=== PATIENT | female | born 1995 | race Hispanic/Latino ===

== ENCOUNTER 2017-07-31 00:01 | Emergency (ER) | payer SELFPAY ==
[~2017-07-31] VITALS: Ht 152.4 cm; Wt 131.5 kg
== END 2017-07-31 00:37 | disposition home or self-care (01) ==
LOC: ER 00:01
DX: L03.115 Cellulitis of right lower limb (principal); L03.114 Cellulitis of left upper limb; I10 Essential (primary) hypertension
CPT/HCPCS: 99282

== ENCOUNTER 2018-05-10 13:49 | Emergency (ER) | payer MEDICARE, OTHER ==
[~2018-05-10] VITALS: Ht 160 cm; Wt 117.9 kg
== END 2018-05-10 17:25 | disposition left against medical advice (07) ==
LOC: FSED 13:49
DX: O20.9 Hemorrhage in early pregnancy, unspecified (principal); R03.0 Elevated blood-pressure reading, without diagnosis of hypertension
CPT/HCPCS: 36415; 76801; 81003; 81025; 84702; 86900; 99283

== ENCOUNTER 2019-01-19 16:33 | Emergency (ER) | payer MEDICARE, OTHER ==
[~2019-01-19] VITALS: Ht 162.6 cm; Wt 130.2 kg
--- OUTSIDE RECORDS SUMMARY | 2019-01-19 16:36 | XMS REPORT | Summary of Care ---
Author Author [facility] - Health Organization [facility] - [facility] Address Unknown Phone Unavailable Care Team Providers Care Information Security Officer Name Role Phone Pcp, Patient Does Not Have A Unavailable Katelyn Whitman CNM PCP Reason for Visit * Reason Comments ABNORMAL PAP LGSIL needs repepat pap in 2020 Encounter Details Care Team Description Date Type Department Katelyn Whitman, [facility] [address] [place] [address] ABNORMAL PAP (LGSIL needs repepat pap in 2020) 01/15/2019 Telephone [facility] [address] [place] [address] Allergies Comments Active Allergy Reactions Severity Noted Date Tetanus Vaccines And Rash, 10/14/2011 Toxoid Shortness of Breath documented as of this encounter (statuses as of 01/15/2019) Medications No known medicationsdocumented as of this encounter (statuses as of 01/15/2019) Active Problems Problem Noted Date Papanicolaou smear of cervix with low grade squamous intraepithelial lesion 01/15/2019 (LGSIL) Overview: Needs repeat pap 12/2019 Need for HPV vaccine 01/08/2019 Well woman exam 12/10/2018 Uses spermicide for contraception 12/10/2018 Overview: Wants IUD BMI 45.0-49.9, adult 12/10/2018 headache 12/06/2018 Pre-eclampsia, delivered 12/05/2018 Allergy to vaccine 08/28/2018 Overview: tetanus documented as of this encounter (statuses as of 01/15/2019) Resolved Problems Problem Noted Date Resolved Date Elevated blood pressure reading without diagnosis of hypertension 12/06/2018 12/10/2018 (normal spontaneous vaginal delivery) 11/20/2018 12/10/2018 Single live 11/20/2018 12/10/2018 First degree laceration of perineum during delivery, 11/20/2018 12/10/2018 GBS (group B Streptococcus carrier), +RV culture, currently 11/18/2018 12/10/2018 39 weeks gestation of 11/18/2018 12/10/2018 Morbid obesity with body mass index of 50 or higher 11/18/2018 12/10/2018 Beta hemolytic Streptococcus culture positive 11/06/2018 12/10/2018 Decreased movements in third trimester 10/16/2018 11/13/2018 Vaginal yeast infection 09/20/2018 09/30/2018 Pelvic pain affecting in third trimester, antepartum 09/20/2018 09/30/2018 Back pain affecting in third trimester 09/20/2018 12/10/2018 Anemia of mother in , antepartum 08/10/2018 12/10/2018 Excessive weight gain affecting 07/10/2018 12/10/2018 Rubella immune 05/21/2018 08/28/2018 High-risk in third trimester 05/15/2018 12/10/2018 Obesity affecting , antepartum 05/15/2018 08/28/2018 Primigravida, antepartum 05/15/2018 08/28/2018 BMI 40.0-44.9, adult 05/15/2018 08/28/2018 PCOS (polycystic ovarian syndrome) 01/27/2014 12/10/2018 Accessory nipple in female 01/27/2014 11/06/2018 Dorsal wrist ganglion 01/06/2014 05/15/2018 Ganglion cyst of wrist, left 01/06/2014 05/15/2018 Obesity affecting in third trimester 01/06/2014 12/10/2018 documented as of this encounter (statuses as of 01/15/2019) Immunizations Name Administration Dates Next Due HPV9 01/08/2019, 11/19/2018 Influenza Virus Vaccine 03/26/2018 documented as of this encounter Social History Date Tobacco Use Types Packs/Day Years Used Never Smoker Smokeless Tobacco: Never Used Drinks/Week oz/Week Comments Alcohol Use No Sex Assigned at Date Recorded Not on file Industry Job Start Date Occupation Not on file Not on file Not on file Travel End Travel History Travel Start No recent travel history available. documented as of this encounter Last Filed Vital Signs Not on filedocumented in this encounter Plan of Treatment Care Team Description Date Type Specialty 1, Yamilet Castillo Rn 06/10/2019 Nurse Visit [facility], Yamilet [facility] Room 01/17/2020 Office Visit [facility] Katelyn Whitman, CNM [address] [place], [place] [id number] 01/17/2020 Office Visit [facility] Health Maintenance Due Date Last Done Comments MENINGOCOCCAL B VACCINES 09/13/2007 (1 of 2 - Risk Bexsero 2-dose series) DTaP,Tdap,and Td Vaccines 2016 (1 - Tdap) INFLUENZA VACCINE (#1) 2019 03/26/2018, 03/18/2014, 04/15/2012, Additional history exists HPV VACCINES (3 - Female 05/21/2019 01/08/2019, 11/19/2018 3-dose series) CHLAMYDIA SCREENING 01/09/2020 01/08/2019, 11/04/2018, 09/20/2018, Additional history exists PAP SMEAR 01/08/2022 01/08/2019 MENINGOCOCCAL VACCINE Aged Out No longer eligible based on patient's age to complete this topic PNEUMOCOCCAL 0-64 YEARS Aged Out No longer eligible based COMBINED SERIES on patient's age to complete this topic documented as of this encounter Results Not on filedocumented in this encounter Insurance Type Payer Benefit Subscriber ID Effective Phone Address Plan / Dates Group Medicaid [facility] xxxxxxxxx 2018-P [address] [place] [id number] MED[place], [place] documented as of this encounter
--- OUTSIDE RECORDS SUMMARY | 2019-01-19 16:36 | XMS REPORT | Summary of Care ---
Author Author [facility] - Health Organization [facility] - [facility] Address Unknown Phone Unavailable Care Team Providers Care Digital Content Manager Name Role Phone Pcp, Patient Does Not Have A Unavailable Katelyn Whitman PCP Reason for Visit * Reason Comments Well Woman Exam Encounter Details Care Team Description Date Type Department Katelyn Whitman CN [address] [place] [address] Well woman exam (Primary Dx); Need for HPV vaccine; Screen for STD (sexually transmitted disease); Uses spermicide for contraception; BMI 45.0-49.9, adult 01/08/2019 [facility] [address] [place] [address] Allergies Comments Active Allergy Reactions Severity Noted Date Tetanus Vaccines And Rash, 10/14/2011 Toxoid Shortness of Breath documented as of this encounter (statuses as of 01/08/2019) Medications End Date Status Medication Sig Dispensed Refills Start Date 01/08/2019 Discontinued ketorolac 10 mg Take 1 tablet 20 tablet 0 tabletIndications: by mouth 9 Nonintractable headache, every 6 (six) unspecified chronicity hours as pattern, unspecified needed for headache type Pain (scale 1-3). 01/08/2019 Discontinued butalbital-acetaminophen- Take 1 tablet 20 tablet 0 caff 50-325-40 mg by mouth 9 tabletIndications: every 4 Nonintractable headache, (four) hours unspecified chronicity as needed for pattern, unspecified Pain (scale headache type 1-3). documented as of this encounter (statuses as of 01/08/2019) Active Problems Problem Noted Date Need for HPV vaccine 01/08/2019 Well woman exam 12/10/2018 Uses spermicide for contraception 12/10/2018 Overview: Wants IUD BMI 45.0-49.9, adult 12/10/2018 headache 12/06/2018 Pre-eclampsia, delivered 12/05/2018 Allergy to vaccine 08/28/2018 Overview: tetanus documented as of this encounter (statuses as of 01/08/2019) Resolved Problems Problem Noted Date Resolved Date [...] as of this encounter (statuses as of 01/08/2019) Immunizations Name Administration Dates Next Due HPV9 [...] of this encounter Last Filed Vital Signs Reading Time Taken Comments Vital Sign 126/85 01/08/2019 11:18 AM CDT Blood Pressure 74 01/08/2019 11:18 AM CDT Pulse 36.2 C (97.2 F) 01/08/2019 11:18 AM CDT Temperature 18 01/08/2019 11:18 AM CDT Respiratory Rate - - Oxygen Saturation - - Inhaled Oxygen Concentration 130.2 kg (287 lb) 01/08/2019 11:18 AM CDT Weight 162.6 cm (5' 4") 01/08/2019 11:18 AM CDT Height 49.26 01/08/2019 11:18 AM CDT Body Mass Index documented in this encounter Patient Instructions * Patient Instructions* Katelyn Whitman CNM - 01/08/2019 10:00 AM CDT Improving Your Fertility Your healthcare provider may suggest some simple methods to help you get pregnan t. Most focus on predicting ovulation. This is the time when sex has the best ch ance of success. Your healthcare provider may also advise working on other facto rs that can affect fertility. Predicting ovulation Conception is only possible when a woman is ovulating. One signal of ovulation i s a surge in the hormone LH. Other signals include changes in body temperature a nd changes in cervical mucus. Ovulation predictor kits One of the best signals of ovulation is a sudden increase in the hormone LH. A s imple urine test called an ovulation predictor kit is available at most [facility] hospital. It can help pinpoint this surge. Have sex the day you notice the surge. Keep having sex daily over the next 3 days, or as often as your healthcare provider suggests. Body temperature changes A womans resting temperature or basal body temperatureincreases after ovula tion. By this point in the cycle, having sex will not increase your chances of getting . But it means ovulation has occurred. Cervical mucus changes Shortly before ovulation a womans cervical mucus gets clear and stretchy. The mucus also increases in quantity. This makes it easier for sperm to travel thro ugh the cervix. Not all women notice these changes. But if you do, begin having sex daily until the mucus thickens again. Working on other factors that affect fertility Certain lifestyle and health habits can affect fertility. Be sure to talk with y our healthcare provider about these issues. You may be able to make some simple changes to improve your chances of conception. Keep in mind, though, that it can take time for healthy changes to improve your fertility. Weight problems Being overweight or underweight can affect hormone levels. In women, this can af fect ovulation. In men, obesity can decrease sperm count. Medicines, supplements, and herbal remedies Medicines, supplements, and herbal remedies can affect hormone levels in men and women. They can also affect the quantity and quality of sperm. Be sure to tell your healthcare provider about any substances you take. Sexually transmitted diseases Sexually transmitted diseases (STDs) can scar the reproductive organs in both me n and women. If youve had an STD, be sure totell your healthcare provider. Testicular heat A hussein testicles are normally a few degrees cooler than the rest of his body. When the testicles are too warm, sperm production may decline. Try to not use h ot tubs and saunas. Smoking, alcohol, and drugs Smoking can affect estrogen levels and decrease egg production in women. Men who smoke may have lowered sperm count. Drinking too much or using drugs can also d ecrease fertility in both men and women. Chemical exposure Certain chemicals can affect hormone levels. Talk with your healthcare provider if youre regularly exposed to strong chemicals. You should also ask about lub ricants used during sex. Some types can be toxic to sperm. Other factors Getting too much exercise can decrease hormone production. It can also cause irr egular menstruation in women. Ongoing stress may alsoaffect fertility and caus e ovulation problems. Date Last Reviewed: 09/23/201719995919-2650 [employer]. [address] [place] [address], [place], [place] [address]. All rights reserved. This information is not intended as a substitute for pro fessional medical care. Always follow your healthcare professional's instruction s. Control: Spermicides Spermicides help prevent by killing sperm before they can enter the ut erus. They come in many forms, including foam, jelly, film, and suppository-like inserts. These can be bought in drugstores without a prescription. rates Talk to your healthcare provider about the effectiveness of this control m ethod. Using spermicides For best protection against , use spermicides with a barrier method (condom, diaphragm, or cervical cap). Apply before there is any contact between the penis and vagina. Check the package for instructions on how to apply. Reapply each time you have sex. Don't douche or use tampons for 6 to 8 hours after using a spermicide. Pros Easy to get No prescription needed Either partner can apply them, so responsibility can be shared Come in many forms Easy to stop if you decide you want to become Cons High rate when used alone Provides little protection against sexually transmitted diseases (STDs) Can interrupt sex May cause minor irritation of the skin or vagina May taste bad Spermicides may not be for you Spermicides may not be for you if: You are not also using a barrier method You are allergic to spermicides You're not willing to interrupt lovemaking to apply them Date Last Reviewed: 07/24/201619997838-4875 [employer]. [address] [place] [address] 7. All rights reserved. This information is not intended as a substitute for pro fessional medical care. Always follow your healthcare professional's instruction s. documented in this encounter Progress Notes * Katelyn Whitman CNM - 01/08/2019 10:00 AM CDT Chief complaint: Chief Complaint Patient presents with Well Woman Exam LAW REPORTER H&P NOTE Date of Service: 01/08/2019 Chief Complaint: Ruthie Fulton, 23 year old, female presents for well wo man exam and contraception Last menstrual period: Patient's last menstrual period was 01/04/2019. Menses: Regular Last Pap Smear: never Current Contraceptive Method: Wants vaginal spermicides STD's: none Sexual History: Social History Substance and Sexual Activity Sexual activity: Yes Partners: Male control/protection: None Comment: last relations 1 wk ago Current Medications: No current outpatient medications on file. No current facility-administered medications for this visit. Allergies: Tetanus vaccines and toxoid History: Past Medical History: No date: ADHD (attention deficit hyperactivity disorder) Comment: DX 2013 TEMPORILY USED MEDICATION 08/10/2018: Anemia of mother in , antepartum No date: Anxiety Comment: DX AGE 18 ,TEMPORARILY TOOK MEDICATION,STOPPED DUE TO LACK OF INSURANCE No date: Hidradenitis Comment: ERROR ??? No date: PCOS (polycystic ovarian syndrome) Comment: DX 201312/05/2018: Preeclampsia 09/20/2018: Vaginal yeast infection Review of patient's family history indicates: Problem: Cancer Relation: Maternal Grandfather Age of Onset: (Not Specified) Comment: Skin cancer Problem: Diabetes Relation: Maternal Grandfather Age of Onset: (Not Specified) Problem: High cholesterol Relation: Maternal Grandfather Age of Onset: (Not Specified) Problem: High cholesterol Relation: Mother Age of Onset: (Not Specified) Problem: Hypertension Relation: Mother Age of Onset: (Not Specified) Problem: High cholesterol Relation: Father Age of Onset: (Not Specified) Problem: Hypertension Relation: Father Age of Onset: (Not Specified) Problem: Diabetes Relation: Maternal Grandmother Age of Onset: (Not Specified) Problem: High cholesterol Relation: Maternal Grandmother Age of Onset: (Not Specified) Family Status Relation: MGFa Name: (Not Specified) Status: Relation: Mo Name: (Not Specified) Status: Alive Relation: Fa Name: (Not Specified) Status: Alive Relation: MGMo Name: (Not Specified) Status: Relation: PGMo Name: (Not Specified) Status: Alive Relation: PGFa Name: (Not Specified) Status: Alive Past Surgical History: 01/12/2014: GANGLION EXCISION; Left Comment: Surgeon: Lonny Singer MD; Location: [facility] No date: HAND DEBRIDEMENT Comment: LEFT CYST REMOVED Social History Socioeconomic History Marital status: Single Spouse name: Not on file Number of children: Not on file Years of education: Not on file Highest education level: Not on file Occupational History Not on file Social Needs Financial resource strain: Not on file Food insecurity: Worry: Not on file Inability: Not on file Transportation needs: Medical: Not on file Non-medical: Not on file Tobacco Use Smoking status: Never Smoker Smokeless tobacco: Never Used Substance and Sexual Activity Alcohol use: No Drug use: No Sexual activity: Yes Partners: Male control/protection: None Comment: last relations 1 wk ago Lifestyle Physical activity: Days per week: Not on file Minutes per session: Not on file Stress: Not on file Relationships Social connections: Talks on phone: Not on file Gets together: Not on file Attends mu-ism service: Not on file Active member of club or organization: Not on file Attends meetings of clubs or organizations: Not on file Relationship status: Not on file Intimate partner violence: Fear of current or ex partner: Not on file Emotionally abused: Not on file Physically abused: Not on file Forced sexual activity: Not on file Other Topics Concerns: Not on file Social History Narrative Not on file Social History Substance and Sexual Activity Sexual activity: Yes Partners: Male control/protection: None Comment: last relations 1 wk ago Surgical History: Past Surgical History: 01/12/2014: GANGLION EXCISION; Left Comment: Surgeon: Lonny Singer MD; Location: [facility] No date: HAND DEBRIDEMENT Comment: LEFT CYST REMOVED OB History: OB History T1 L1 SAB0 TAB0 Ectopic0 Multiple0 Live Births1 Name of Baby 1: IVAN FULTON Date: 11/19/18 GA: 39w5d Delivery: Normal Spontaneous Vagin al Apgar1: 9 Apgar5: 9 Living: Living Histories OB History Para Term AB Living 1 1 1 1 SAB TAB Ectopic Multiple Live Births 1 # Outcome Date GA Lbr [place]/2nd Weight Sex Delivery Anes PTL Lv 1 Term 11/19/18 39w5d 7 lb 1.9 oz (3.23 kg) F NORMAL SPONT EPI N SHAHEEN Past Medical History: Diagnosis Date ADHD (attention deficit hyperactivity disorder) DX 2013 TEMPORILY USED MEDICATION Anemia of mother in , antepartum 08/10/2018 Anxiety DX AGE 18 ,TEMPORARILY TOOK MEDICATION,STOPPED DUE TO LACK OF INSURANCE Hidradenitis ERROR ??? PCOS (polycystic ovarian syndrome) DX 2013 Preeclampsia 12/05/2018 Vaginal yeast infection 09/20/2018 Family History Problem Relation Age of Onset Cancer Maternal Grandfather Skin cancer Diabetes Maternal Grandfather High cholesterol Maternal Grandfather High cholesterol Mother Hypertension Mother High cholesterol Father Hypertension Father Diabetes Maternal Grandmother High cholesterol Maternal Grandmother Family Status Relation Name Status MGFa Mo Alive Fa Alive MGMo PGMo Alive PGFa Alive Past Surgical History: Procedure Laterality Date GANGLION EXCISION Left 01/12/2014 Surgeon: Lonny Singer MD; Location: [facility] HAND DEBRIDEMENT LEFT CYST REMOVED Social History Socioeconomic History Marital status: Single Spouse name: Not on file Number of children: Not on file Years of education: Not on file Highest education level: Not on file Occupational History Not on file Social Needs Financial resource strain: Not on file Food insecurity: Worry: Not on file Inability: Not on file Transportation needs: Medical: Not on file Non-medical: Not on file Tobacco Use Smoking status: Never Smoker Smokeless tobacco: Never Used Substance and Sexual Activity Alcohol use: No Drug use: No Sexual activity: Yes Partners: Male control/protection: None Comment: last relations 1 wk ago Lifestyle Physical activity: Days per week: Not on file Minutes per session: Not on file Stress: Not on file Relationships Social connections: Talks on phone: Not on file Gets together: Not on file Attends mu-ism service: Not on file Active member of club or organization: Not on file Attends meetings of clubs or organizations: Not on file Relationship status: Not on file Intimate partner violence: Fear of current or ex partner: Not on file Emotionally abused: Not on file Physically abused: Not on file Forced sexual activity: Not on file Other Topics Concern Not on file Social History Narrative Not on file Social History Substance and Sexual Activity Sexual Activity Yes Partners: Male control/protection: None Comment: last relations 1 wk ago Labs Labs are pending. and No visits with results within 1 Month(s) from this visit. Latest known visit with results is: Admission on 12/07/2018, Discharged on 12/08/2018 Component Date Value NA 12/07/2018 140 K 12/07/2018 4.5 CL 12/07/2018 105 CO2 TOTAL 12/07/2018 24 AGAP 12/07/2018 11 BUN 12/07/2018 16 GLUCOSE 12/07/2018 97 CREATININE 12/07/2018 0.99 TOTAL BILI 12/07/2018 0.3 CALCIUM 12/07/2018 9.0 T PROTEIN 12/07/2018 7.3 ALBUMIN 12/07/2018 4.0 ALK PHOS 12/07/2018 100 ALT(SGPT) 12/07/2018 26 AST(SGOT) 12/07/2018 31 eGFR Calculation (Non-Af* 12/07/2018 70.8 eGFR Calculation (Mary* 12/07/2018 85.8 PREG SERUM 12/07/2018 Negative WBC 12/07/2018 7.17 RBC 12/07/2018 4.34 HGB 12/07/2018 11.7 HCT 12/07/2018 36.8 MCV 12/07/2018 84.8 MCH 12/07/2018 27.0 MCHC 12/07/2018 31.8 RDW-SD 12/07/2018 41.0 RDW-CV 12/07/2018 13.2 PLT 12/07/2018 259 MPV 12/07/2018 11.5 NRBC/100 WBC 12/07/2018 0.0 NRBC x10^3 12/07/2018 <0.01 GRAN MAT (NEUT) % 12/07/2018 60.0 IMM GRAN % 12/07/2018 0.40 LYMPH % 12/07/2018 25.8 MONO % 12/07/2018 7.8 EOS % 12/07/2018 5.4 BASO % 12/07/2018 0.6 GRAN MAT x10^3(ANC) 12/07/2018 4.30 IMM GRAN x10^3 12/07/2018 0.03 LYMPH x10^3 12/07/2018 1.85 MONO x10^3 12/07/2018 0.56 EOS x10^3 12/07/2018 0.39 BASO x10^3 12/07/2018 0.04 Radiology No new radiology. Allergies Ruthie is allergic to tetanus vaccines and toxoid. Medications Ruthie currently has no medications in their medication list. Review of Systems Breasts: Negative. Gastrointestinal: Negative. Genitourinary: Negative. Musculoskeletal: Negative. Neurological: Negative. Psychiatric/Behavioral: Negative. All other systems reviewed and are negative. Endocrine: Endocrine negative BP 126/85 | Pulse 74 | Temp 36.2 C (97.2 F) (Tympanic) | Resp 18 | Ht 5' 4" (1.626 m) | Wt 287 lb (130.2 kg) | LMP 01/04/2019 | ? Yes | BMI 49.26 kg/m Pregravid BMI: Could not be calculated Physical Exam Vitals reviewed. Constitutional: She appears well-developed. Her body habitus is obese. Neck: No tenderness and no mass. Cardiovascular: Regular rate and rhythm. Pulmonary/Chest: Normal inspiratory effort. Abdominal: Abdomen is soft. Neuro/Psychiatric: She has a normal mood and affect. Skin: Skin normal. Breast: Normal left breast and normal right breast External genitalia: Normal external genitalia appropriate for age. Vagina:Normal vagina. Cervix: Normal cervix. Uterus: Normal uterus Adnexa: Normal left adnexa and normal right adnexa Assessment/Plan Well woman exam (primary encounter diagnosis) Comment: Plan: PAP Smear-Liquid Based, GC & CHLAMYDIA AMPLIFIED ASSAY, TRICHOMONAS AMPLIFIED ASSAY Need for HPV vaccine Comment: Plan: GARDASIL 9 (HPV 9V) VACCINE, GARDASIL 9 (HPV 9V) VACCINE Series started in hospital Screen for STD (sexually transmitted disease) Comment: Plan: HIV 1/2 AG-AB WITH REFLEX, [facility]AL[facility] ONLY - SYPHILIS IGG/IGM Uses spermicide for contraception Comment: Plan: discussed increase effectiveness w/ condom use and fertility awareness BMI 45.0-49.9, adult Comment: Plan: Return to clinic in 4 mon HPV #3. This visit did not involve counseling and coordination that comprised more than 50% of the visit time. * Sherrell Tang LVN - 01/08/2019 10:00 AM CDT [facility] sponsored patient here for HPV vaccine. This is patients 2nd dose. She de nies any complications with 1st administration. Her current method of co ntrol is Abstinence . Patient will return for dose number 3 In 6 mo from 1st dose. Verbalized understanding & agreed with plan of care. documented in this encounter Plan of Treatment Care Team Description Date Type Specialty 1, Yamilet Castillo Rn 06/10/2019 Nurse Visit OB Satellites Date/Time Name Type Priority Associated Diagnoses 01/08/2019 12:40 PM CDT PAP Smear-Liquid Based LAB Routine Well woman exam 01/08/2019 12:40 PM CDT GC & CHLAMYDIA AMPLIFIED LAB Routine Well woman exam ASSAY 01/08/2019 12:40 PM CDT TRICHOMONAS AMPLIFIED LAB Routine Well woman exam ASSAY 01/08/2019 12:46 PM CDT HIV 1/2 AG-AB WITH REFLEX LAB Routine Screen for STD (sexually transmitted disease) 01/08/2019 12:46 PM CDT [facility] ONLY - SYPHILIS LAB Routine Screen for STD (sexually IGG/IGM transmitted disease) Order Schedule Name Type Priority Associated Diagnoses 2 Occurrences starting 01/08/2019 until 07/11/2020, 1 completed GARDASIL 9 (HPV 9V) IMMUNIZATION/IN Routine Need for HPV vaccine VACCINE JECTION Health Maintenance Due Date Last Done Comments MENINGOCOCCAL B VACCINES 09/13/2007 (1 of 2 - Risk Bexsero 2-dose series) DTaP,Tdap,and Td Vaccines 2016 (1 - Tdap) PAP SMEAR 2018 HPV VACCINES (2 - Female 12/17/2018 11/19/2018 3-dose series) INFLUENZA VACCINE (#1) 2019 03/26/2018, 03/18/2014, 04/15/2012, Additional history exists CHLAMYDIA SCREENING 11/05/2019 11/04/2018, 09/20/2018, 05/15/2018 MENINGOCOCCAL VACCINE Aged Out No longer eligible based on patient's age to complete this topic PNEUMOCOCCAL 0-64 YEARS Aged Out No longer eligible based COMBINED SERIES on patient's age to complete this topic documented as of this encounter Procedures Comments Procedure Name Priority Date/Time Associated Diagnosis GARDASIL 9 (HPV 9V) Routine 01/08/2019 Need for HPV vaccine VACCINE 11:52 AM CDT documented in this encounter Results Not on filedocumented in this encounter Visit Diagnoses Diagnosis Well woman exam - Primary Routine general medical examination at a health care facility Need for HPV vaccine Need for prophylactic vaccination and inoculation against other viral diseases Screen for STD (sexually transmitted disease) Screening examination for venereal disease Uses spermicide for contraception BMI 45.0-49.9, adult Body Mass Index 45.0-49.9, adult documented in this encounter Insurance Type Payer Benefit Subscriber ID Effective Phone Address Plan / Dates Group Medicaid THOMAS [employer] - THOMAS xxxxxxxxx 2018-P [address]OX MANAGED MEDICAID [place]CARE [place] [id number] MEDICAID [place], [place] documented as of this encounter
--- OUTSIDE RECORDS SUMMARY | 2019-01-19 16:36 | XMS REPORT | Summary of Care ---
Author Author [facility] - Health Organization [facility] - [facility] Address Unknown Phone Unavailable Care Team Providers Care Grocery Carrier Name Role Phone Pcp, Patient Does Not Have A Unavailable Katelyn Whitman PCP Reason for Visit * Reason Comments Well Woman Exam Encounter Details Care Team Description Date Type Department Katelyn Whitman CN [address] [place] [address] Well woman exam (Primary Dx); Need for HPV vaccine; Screen for STD (sexually transmitted disease); Uses spermicide for contraception; BMI 45.0-49.9, adult [facility] [address] [place] [address] Allergies Comments Active Allergy Reactions [...] ovulation predictor kit is available at most [facility]. It can help pinpoint this surge. Have [...] caus e ovulation problems. Date Last Reviewed: 09/23/201719992104-3148 [employer]. [address] [place] [address], [place], [place] [address]. All rights reserved. This information is [...] lovemaking to apply them Date Last Reviewed: 07/24/201619993920-6385 [employer]. [address] [place] [address] 7. All rights reserved. This information is not intended as a substitute for pro fessional medical care. Always follow your healthcare professional's instruction s. documented in this encounter Progress Notes * Katelyn Whitman CNM - 01/08/2019 10:00 AM CDT Chief complaint: Chief Complaint Patient presents with Well Woman Exam WEB SITE DEVELOPER H&P NOTE Date of Service: 01/08/2019 Chief [...] Left Comment: Surgeon: Lonny Singer MD; Location[facility] No date: HAND DEBRIDEMENT Comment: LEFT CYST [...] file Gets together: Not on file Attends rastafari service: Not on file Active member of [...] Left Comment: Surgeon: Lonny Singer MD; Location: [facility] No date: HAND DEBRIDEMENT Comment: LEFT CYST [...] Left 01/12/2014 Surgeon: Lonny Singer MD; Location: [facility] HAND DEBRIDEMENT LEFT CYST REMOVED Social History [...] file Gets together: Not on file Attends rastafari service: Not on file Active member of [...] Address Plan / Dates Group Medicaid THOMAS [employer] - THOMAS xxxxxxxxx 2018-P [address] MANAGED MED[place]ID [place] [id number] MED[place]ID [place], [place] documented as of this encounter
--- OUTSIDE RECORDS SUMMARY | 2019-01-19 16:36 | XMS REPORT ---
Author Author [facility] Address Unknown Phone Unavailable Care Team Providers Care Turfgrass Technician Name Role Phone Unavailable Unavailable Payers Payer Name Policy Type Policy Number Effective Date Expiration Date Problems This patient has no known problems. Allergies, Adverse Reactions, Alerts Allergy Name Allergy Type Status Severity Reaction(s) Onset Date Inactive Date Treating Clinician Comments Tetanus Vaccines and Toxoid DA Active CO 2018-05-17 00:00:00 No Known Contrast Allergies DA Active U 2007-04-21 00:00:00 No Known Drug Allergies DA Active U 2007-04-21 00:00:00 No Known Food Allergies DA Active U 2007-04-21 00:00:00 No Known Other Allergies DA Active U 2007-04-21 00:00:00 Medications This patient has no known medications.
[2019-01-19] MEDS ORDERED: LIDOCAINE 1% W/EPINEPHRINE 20 ML VIAL ONE (16:50)
[2019-01-19] MEDS ORDERED: NAPROSYN500 MG PO (16:59)
[2019-01-19] MEDS ORDERED: BACTRIM DS TAB1 EACH PO (16:59)
[2019-01-19 17:37] VITALS: BP 162/94
== END 2019-01-19 17:29 | disposition home or self-care (01) ==
LOC: FSED 16:33
DX: L02.412 Cutaneous abscess of left axilla (principal); L73.2 Hidradenitis suppurativa
CPT/HCPCS: 10060; 82948; 87071; 87205; 96372; 99283

== ENCOUNTER 2019-01-22 14:17 | Emergency (ER) | payer OTHER ==
[~2019-01-22] VITALS: Ht 162.6 cm; Wt 130.2 kg
[~2019-01-22 14:17] MED LIST: BACTRIM DS TAB1 EACH PO; NAPROSYN500 MG PO
[2019-01-22 15:14] VITALS: BP 126/64
== END 2019-01-22 15:03 | disposition home or self-care (01) ==
LOC: FSED 14:17
DX: L73.2 Hidradenitis suppurativa (principal); L02.91 Cutaneous abscess, unspecified
CPT/HCPCS: 99283

== ENCOUNTER 2019-08-24 11:13 | Emergency (ER) | payer SELFPAY ==
[~2019-08-24] VITALS: Ht 160 cm; Wt 122.9 kg
--- OUTSIDE RECORDS SUMMARY | 2019-08-24 11:16 | XMS REPORT | Summary of Care ---
Author Author [facility] - Health Organization [facility] - Health Address Unknown Phone Unavailable Care Team Providers Care Edge Blacker Name Role Phone Pcp, Patient Does Not Have A Unavailable Katelyn Whitman CNM PCP Encounter Details Care Team Description Date Type Department Doctor Unassigned, [place] [address] [place] [address] 06/16/2019 Orders Only [facility] [address] [place] [address] Allergies Comments Active Allergy Reactions Severity Noted Date Tetanus Vaccines And Rash, 10/14/2011 Toxoid Shortness of Breath documented as of this encounter (statuses as of 06/16/2019) Medications No known medicationsdocumented as of this encounter (statuses as of 06/16/2019) Active Problems Problem Noted Date Papanicolaou smear of cervix with low grade squamous intraepithelial lesion 01/15/2019 (LGSIL) Overview: Needs repeat pap 12/2019 Need for HPV vaccine 01/08/2019 Well woman exam 12/10/2018 Uses spermicide for contraception 12/10/2018 Overview: Wants IUD BMI 45.0-49.9, adult 12/10/2018 headache 12/06/2018 Pre-eclampsia, delivered 12/05/2018 Allergy to vaccine 08/28/2018 Overview: tetanus documented as of this encounter (statuses as of 06/16/2019) Resolved Problems Problem Noted Date Resolved Date [...] as of this encounter (statuses as of 06/16/2019) Immunizations Name Administration Dates Next Due HPV9 [...] Treatment Care Team Description Date Type Specialty 3, [facility] Room 01/17/2020 Office Visit [facility], Katelyn L, CNM [address] [place] [id number] 01/17/2020 Office Visit [facility] Health Maintenance Due Date Last Done Comments MENINGOCOCCAL B VACCINES 09/13/2007 (1 of 2 - Risk Bexsero 2-dose series) DTaP,Tdap,and Td Vaccines 2008 (1 - Tdap) INFLUENZA VACCINE (#1) 2019 [...] Comments Procedure Name Priority Date/Time Associated Diagnosis ASSIGNMENT OF BENEFITS Routine 06/16/2019 3:08 PM IMPORT CLERK documented in this encounter Results Not on filedocumented in this encounter Insurance Type Payer Benefit Subscriber ID Effective Phone Address Plan / Dates Group Medicaid [employer] [place] [employer] [id number] xxxxxxxxx 2019- [phone] [id number] [place] [address] documented as of this encounter
--- OUTSIDE RECORDS SUMMARY | 2019-08-24 11:16 | XMS REPORT | Summary of Care ---
Author Author [facility] - Health Organization [facility] - [facility] Address Unknown Phone Unavailable Care Team Providers Care Assistant Press Operator Name Role Phone Pcp, Patient Does Not Have A Unavailable Katelyn Whitman [facility] PCP Reason for Visit * Reason Comments HUMAN PAPILLOMAVIRUS Encounter Details Care Team Description Date Type Department Katelyn Whitman CN [address] [place] [address] 1, [facility] Anna Rn examination or test, negative result (Primary Dx); Need for HPV vaccine 06/16/[address] [facility] [address] [place] [address] Allergies Comments Active Allergy Reactions Severity [...] Immunizations Name Administration Dates Next Due HPV9 06/16/2019, 01/08/2019, 11/19/2018 Influenza Virus Vaccine 03/26/2018 documented [...] Signs Reading Time Taken Comments Vital Sign 115/74 06/16/2019 3:22 PM TOWEL ROLLING MACHINE OPERATOR Blood Pressure 71 06/16/2019 3:22 PM TOWEL ROLLING MACHINE OPERATOR Pulse 35.7 C (96.2 F) 06/16/2019 3:22 PM TOWEL ROLLING MACHINE OPERATOR Temperature 21 06/16/2019 3:22 PM TOWEL ROLLING MACHINE OPERATOR Respiratory Rate - - Oxygen Saturation - - Inhaled Oxygen Concentration 130.2 kg (287 lb) 06/16/2019 3:22 PM TOWEL ROLLING MACHINE OPERATOR Weight 162.6 cm (5' 4") 06/16/2019 3:22 PM TOWEL ROLLING MACHINE OPERATOR Height 49.26 06/16/2019 3:22 PM TOWEL ROLLING MACHINE OPERATOR Body Mass Index documented in this encounter Progress Notes * Brittany Christianson LVN - 06/16/2019 2:45 PM TOWEL ROLLING MACHINE OPERATOR HPV # 3 ordered by provider Antonette Verbal consents for HPV States not . UPT Negative Deneis allergy to yeast Gardasil 9 0.5 ml given right deltoid arm. Pt tolerated well. VIS and ER warnings given. Tylenol as needed for pain/discomfort from vaccine. Pt verbalized understanding and agrees with plan of care L ROLLING MACHINE OPERATOR documented in this encounter Plan of Treatment Care Team Description Date Type Specialty 3, [facility] Room 01/17/2020 Office Visit [facility] Katelyn Whitman, ZULEYMA [address] [place], [place] [address] 01/17/2020 Office Visit [facility] Health Maintenance Due Date Last Done Comments MENINGOCOCCAL B VACCINES 09/13/2007 (1 of 2 - Risk Bexsero 2-dose series) DTaP,Tdap,and Td Vaccines 2008 (1 - Tdap) INFLUENZA VACCINE (#1) 2019 03/26/2018, 03/18/2014, 04/15/2012, Additional history exists CHLAMYDIA SCREENING 01/09/2020 01/08/2019, 11/04/2018, 09/20/2018, Additional history exists PAP SMEAR 01/08/2022 01/08/2019 HPV VACCINES Completed 06/16/2019, 01/08/2019, 11/19/2018 MENINGOCOCCAL VACCINE Aged Out No longer eligible based on patient's age to complete this topic PNEUMOCOCCAL 0-64 YEARS Aged Out No longer eligible based COMBINED SERIES on patient's age to complete this topic documented as of this encounter Procedures Comments Procedure Name Priority Date/Time Associated Diagnosis GARDASIL 9 (HPV 9V) Routine 06/16/2019 Need for HPV vaccine VACCINE 3:42 PM TOWEL ROLLING MACHINE OPERATOR POCT TEST Routine 06/16/2019 examination or test, negative result documented in this encounter Results * POCT TEST (06/16/2019) POCT PREG Negative On board Yes controls acceptable with C Line POCT PREG LOT # POCT PREG TEST DATE Specimen Urine - URINE, CLEAN CATCH documented in this encounter Visit Diagnoses Diagnosis examination or test, negative result - Primary Need for HPV vaccine Need for prophylactic vaccination and inoculation against other viral diseases documented in this encounter Insurance Type Payer Benefit Subscriber ID Effective Phone Address Plan / Dates Group Medicaid [place] [facility] xxxxxxxxx 2019- [phone] [place] [address] documented as of this encounter
[2019-08-24] MEDS ORDERED: AUGMENTIN 500-1 EACH PO (11:37)
== END 2019-08-24 12:00 | disposition home or self-care (01) ==
LOC: FSED 11:13
DX: R50.9 Fever, unspecified (principal); J02.0 Streptococcal pharyngitis
CPT/HCPCS: 99282

== ENCOUNTER 2020-01-13 20:13 | Emergency (ER) | payer SELFPAY ==
[~2020-01-13] VITALS: Ht 160 cm; Wt 120.2 kg
[~2020-01-13 20:13] MED LIST changes: +AUGMENTIN 500-1 EACH PO
--- NOTE | 2020-01-13 22:03 | Emergency Department Note ---
History of Present Illnes History of Present Illness Chief Complaint: fever, vomiting and diarrhea History of Present Illness This is a 24 year old female, with history of PCOS, who presents for evaluation of fever, chills, N\V x 3 and diarrhea x 5, all symptoms began at Noon today. She states that she is currently nauseated, and last vomited in the car, on the way here. The stools are loose and watery without blood or mucous. No known sick contacts. No urinary symptoms. NO abdominal pain, other than mild epigastric discomfort. Historian: Patient Arrival Mode: Car Gas Engine Operator Compressors Required: No Onset (how long ago): hour(s) (12) Location: nauseated Radiation: Reports non-radiation Severity: moderate Onset quality: sudden Duration (how long): hour(s) (12) Timing of current episode: intermittent Progression: unchanged Chronicity: new Context: Denies recent illness, Denies recent surgery, Denies new medications Relieving factors: none Exacerbating factors: none Associated symptoms: Reports denies other symptoms, Reports fever/chills, Reports loss of appetite, Reports nausea/vomiting; Denies chest pain, Denies cough, Denies diaphoresis, Denies headaches, Denies rash, Denies shortness of breath Treatments prior to arrival: none Past Medical/Family History Physician Review I have reviewed the patient's past medical and family history. Any updates have been documented here. Past Medical History Past Medical History: None Other Medical History: PCOS Past Surgical History: None Other Surgery: CYST LEFT WRIST Social History Smoking Cessation: Never Smoker Alcohol Use: None Any Illegal Drug Use: No TB Exposure/Symptoms: No Physically hurt or threatened: No Family History Family history of heart diseas: No Other Last Tetanus: unk Any Pre-Existing Lines (PICC,: No Is patient up to date on immun: No Review of Systems Review of Systems Constitutional: Reports fever, Reports malaise EENTM: Reports no symptoms Cardiovascular: Denies chest pain Respiratory: Denies cough, Denies dyspnea Gastrointestinal: Reports abdominal pain (epigastric), Reports diarrhea (loose and watery), Reports nausea, Reports vomiting; Denies constipation Genitourinary: Denies discharge, Denies dysuria, Denies frequency Musculoskeletal: Reports no symptoms; Denies joint pain, Denies joint swelling, Denies neck pain Integumentary: Reports no symptoms; Denies lumps Neurological: Denies headache, Denies numbness, Denies paresthesia Psychological: Reports no symptoms Endocrine: Reports no symptoms Review of other systems: All other systems negative Physical Exam Related Data Allergies: Coded Allergies: Tetanus Vaccines and Toxoid (Verified Allergy, Unknown, 07/31/17) Vital signs reviewed: Yes Physical Exam CONSTITUTIONAL Constitutional: Present well-developed, Present well-nourished; Absent ill appearing HENT HENT: Present normocephalic, Present atraumatic, Present oropharynx clear/moist, Present nose normal; Absent nasal congestion HENT L/R: Present left ext ear normal, Present right ext ear normal EYES Eyes: Reports PERRL, Reports conjunctivae normal NECK Neck: Present ROM normal, Present supple PULMONARY Pulmonary: Present effort normal, Present breath sounds normal CARDIOVASCULAR Cardiovascular: Present regular rhythm, Present heart sounds normal, Present capillary refill normal, Present normal rate GASTROINTESTINAL Abdominal: Present soft, Present bowel sounds normal, Present tender (mild epigastric ttp, no rebound or guarding); Absent distension, Absent rebound, Absent left CVA tenderness, Absent right CVA tenderness GENITOURINARY Genitourinary: Present exam deferred SKIN Skin: Present warm, Present dry MUSCULOSKELETAL Musculoskeletal: Present ROM normal NEUROLOGICAL PSYCHOLOGICAL Psychological: Present mood/affect normal, Present judgement normal Results Laboratory Lab results reviewed: Yes Laboratory comments CBC - nl; Metlyte 8 - nl, except for K+ = 3.4, Cr = 0.2; Liver Panel - normal; UA - neg except small leuk; UPT - negative; Assessment & Plan Medical Decision Making MDM - Recommend that you follow a [place]ulkner diet, for the next several days, including avoiding all Fried, Fatty, Fast, and Spicy foods. - Drink plenty of fluids, including water, Pedialyte or G2 Gatorade (low sugar). - He may take the Ondansetron, which is for nausea, as needed. - If your diarrhea persists, you may take Imodium AD, per package instructions, as needed. - Increase Potassium Rich foods in your diet for the next week (see provided handout), to help replete the stores that were lost with the vomiting and diarrhea. - You may use Monistat or Lotrimin cream, [id number], as needed for treatment of athlete's foot. - Follow-up with your primary care physician, if symptoms persist, despite appropriate treatment. Assessment & Plan Final Impression: (1) Viral gastroenteritis (2) Vomiting (3) Diarrhea (4) Hypokalemia (5) Tinea pedis Depart Disposition: HOME, SELF-[facility] Meds Active Scripts Ondansetron (ONDANSETRON ODT) 8 Mg Tab.rapdis, 4 MG PO Q6H for nausea and vomiting, #20 TAB 0 Refills Prov:MIKHAIL MCMAHON MD 01/14/20 Amoxicillin/Potassium Clav (AUGMENTIN 500-125 TABLET) 1 Each Tablet, 500 MG PO TID, #21 TAB Prov:KHALIDA LAWTON MD 08/24/19 Naproxen (NAPROSYN) 500 Mg Tablet, 1 TAB PO BID PRN for pain for 7 Days, #14 Prov:DEVIN FERRELL MD 01/19/19 Sulfamethoxazole/Trimethoprim (BACTRIM DS TABLET) 1 Each Tablet, 1 EACH PO BID for 10 Days, #20 Prov:DEVIN FERRELL MD 01/19/19 MIKHAIL MCMAHON MD Jan 13, 2020 22:03
--- OUTSIDE RECORDS SUMMARY | 2020-01-13 22:39 | XMS REPORT | Continuity of Care Document ---
Author Author [facility] t Organization [facility] Address [address] [place] [address] Phone Unavailable Care Team Providers Care Manufacturers Representative Name Role Phone NO, PCP PCP Unavailable 1, [facility] Pas-Rmchp Attphys Unavailable Doctor Unassigned, Name No Attphys Unavailable Jason Whitman CNM Attphys Payers Payer Name Policy Type Policy Number Effective Date Expiration Date Alejandra Valerio [id number] 2018 00:00:00 [facility] Ppo [id number] [facility] Problems This patient has no known problems. Allergies, Adverse Reactions, Alerts Allergy Name Allergy Type Status Severity Reaction(s) Onset Date Inacti ve Date Treating Clinician Comments Source Tetanus Vaccines and Toxoid DA Active ID 2018-05-17 00:00: 00 [facility] Tetanus Vaccines and Toxoid Allergy to Substance Active 2017-07-31 00:00:00 [facility] No Known Contrast Allergies DA Active U 2007-04-21 00:00: 00 [facility] No Known Drug Allergies DA Active U 2007-04-21 00:00:00 [facility] No Known Food Allergies DA Active U 2007-04-21 00:00:00 [facility] No Known Other Allergies DA Active U 2007-04-21 00:00:00 [facility] Medications Ordered Medication Name Filled Medication Name Start Date Stop Da te Current Medication? Ordering Clinician Indication Dosage Frequency Signature (SIG) Comments Components Source Amoxicillin/Potassium Clav (Augmentin 500-125 Tablet) 1 Each Tablet Amoxicillin/Potassium Clav (Augmentin 500-125 Tablet) 1 Each Tablet 2019-08-24 00:00:00 Yes Jessy Becerril Md 500 Three Times A Day [facility] Naproxen (Naprosyn) 500 Mg Tablet Naproxen (Naprosyn) 500 Mg Tablet 2019-01-19 00:00:00 Yes Devin Ferrell Md 1 Twice A Day as needed for Pain [facility] Sulfamethoxazole/Trimethoprim (Bactrim Ds Tablet) 1 Ea ch Tablet Sulfamethoxazole/Trimethoprim (Bactrim Ds Tablet) 1 Each Tablet 2019-01-19 00:00:00 Yes Devin Ferrell Md 1 Twice A Day [facility] Procedures Procedure Date / Time Performed Performing Clinician [facility] e DRAINAGE OF SKIN ABSCESS 2019-01-19 00:00:00 DEVIN FERRELL [facility] Encounters Start Date/Time End Date/Time [facility] ID Source 2019-08-24 11:13:00 2019-08-24 12:00:00 Departed Emergency Room [facility] [id number] [facility] 2019-06-16 15:12:39 2019-06-16 16:00:46 Nurse Visit 1, Santhosh Castillo Rn [facility] COMPUTING CONSULTANT [facility] [id number] 2019-06-16 00:00:00 2019-06-16 00:00:00 Orders Only [place] Unassigned, [place] [facility] [id number] 2019-01-22 14:17:00 2019-01-22 15:03:00 Departed Emergency Room [facility] [id number] [facility] 2019-01-19 16:33:00 2019-01-19 17:29:00 Departed Emergency Room [facility] [id number] [facility] 2019-01-15 00:00:00 2019-01-15 00:00:00 Telephone Katelyn Whitman [facility] COMPUTING CONSULTANT [facility] & CHILD [facility] [id number] 2019-01-08 11:10:14 2019-01-08 12:53:11 Office Visit Katelyn Whitman [facility] COMPUTING CONSULTANT [facility] [id number] 2018-05-10 13:49:00 2018-05-10 17:25:00 Departed Emergency Room [facility] [id number] [facility] 2017-07-31 00:01:00 2017-07-31 00:37:00 Departed Emergency Room [facility] [id number] [facility] Results Test Description Test Time Test Comments Results Result Comments Source Human Chorionic Gonadotropin, Quant 2018-05-10 17:15:00 Test Item Human Chorionic Gonadotropin, Quant (test code = 77412-3) 36235.36 0-10 [facility] 2018-05-10 17:15:00* Test Item Value Reference Range Interpretation Comments Human Chorionic Gonadotropin, Quant (test code = 25433-8) 28082.36 0-10 H [facility] Chorionic Gonadotropin, Quant 2018-05-10 17:15:00* Test Item Value Reference Range Interpretation Comments Human Chorionic Gonadotropin, Quant (test code = 30754-1) 83546.36 0-10 H [facility]
[2020-01-13] MEDS ORDERED: ONDANSETRON HCL INJ 2MG/ML 2ML 2 MG/ML VIAL IV STA (22:56)
[2020-01-13] MEDS ORDERED: FAMOTIDINE 20 MG/2 ML VIAL IV STA (22:56)
[2020-01-13] MEDS ORDERED: SODIUM CHLORIDE 0.9% 1000ML 1,000 ML ONE (23:23)
[2020-01-14] MEDS ORDERED: ONDANSETRON ODT8 MG PO (00:24)
== END 2020-01-14 00:45 | disposition home or self-care (01) ==
LOC: FSED 22:30
DX: A08.4 Viral intestinal infection, unspecified (principal); R11.2 Nausea with vomiting, unspecified; E87.6 Hypokalemia; B35.3 Tinea pedis; E28.2 Polycystic ovarian syndrome
CPT/HCPCS: 99283; J7030; 80053; 81003; 81025; 85025; J2405

== ENCOUNTER 2020-04-03 18:48 | Emergency (ER) | payer SELFPAY ==
[~2020-04-03] VITALS: Ht 162.6 cm; Wt 122.5 kg
[~2020-04-03 18:48] MED LIST changes: +ONDANSETRON ODT8 MG PO
[2020-04-03] MEDS ORDERED: IBUPROFEN IB200 MG PO (19:16)
[2020-04-03] MEDS ORDERED: TYLENOL # 31 EA PO (19:16)
[2020-04-03] MEDS ORDERED: ZOFRAN4 MG SL (19:16)
--- NOTE | 2020-04-03 19:16 | Emergency Department Note ---
History of Present Illnes History of Present Illness Chief Complaint: Back Pain History of Present Illness This is a 24 year old female c/o lower back pain since yesterday, denies injury. no N/V/D pain does not radiate. Motrin 400 mg at 1600 Historian: Patient Arrival Mode: Car Tongue And Quarter Stitcher Required: No Onset (how long ago): day(s) Radiation: Reports back Severity: moderate Onset quality: gradual Duration (how long): day(s) Timing of current episode: constant Progression: unchanged Chronicity: new Relieving factors: immobilization Exacerbating factors: movement Associated symptoms: Reports denies other symptoms Treatments prior to arrival: none Past Medical/Family History Physician Review I have reviewed the patient's past medical and family history. Any updates have been documented here. Past Medical History Recent Fever: No Clinical Suspicion of Infectio: No New/Unexplained Change in Ment: No Past Medical History: None Other Medical History: PCOS Past Surgical History: None Other Surgery: CYST LEFT WRIST Social History Smoking Cessation: Never Smoker Counseling Performed: No Alcohol Use: None Any Illegal Drug Use: No Physically hurt or threatened: No Other Last Tetanus: unk Any Pre-Existing Lines (PICC,: No Review of Systems Review of Systems Constitutional: Reports no symptoms EENTM: Reports no symptoms Cardiovascular: Reports no symptoms Respiratory: Reports no symptoms Gastrointestinal: Reports no symptoms Genitourinary: Reports no symptoms Musculoskeletal: Reports back pain Integumentary: Reports no symptoms Neurological: Reports no symptoms Psychological: Reports no symptoms Endocrine: Reports no symptoms Hematological/Lymphatic: Reports no symptoms Physical Exam Related Data Allergies: Coded Allergies: Tetanus Vaccines and Toxoid (Verified Allergy, Unknown, 07/31/17) Triage Vital Signs Vital Signs Date Time Temp Pulse Resp B/P (MAP) Pulse Ox O2 Delivery O2 Flow Rate FiO2 04/03/20 19:06 98.5 75 142/77 99 Physical Exam CONSTITUTIONAL Constitutional: Present well-developed, Present well-nourished HENT HENT: Present normocephalic, Present atraumatic, Present oropharynx clear/moist, Present nose normal HENT L/R: Present left ext ear normal, Present right ext ear normal EYES Eyes: Reports PERRL, Reports conjunctivae normal NECK Neck: Present ROM normal PULMONARY Pulmonary: Present effort normal, Present breath sounds normal CARDIOVASCULAR Cardiovascular: Present regular rhythm, Present heart sounds normal, Present capillary refill normal, Present normal rate GASTROINTESTINAL Abdominal: Present soft, Present nontender, Present bowel sounds normal GENITOURINARY Genitourinary: Present exam deferred SKIN Skin: Present warm, Present dry MUSCULOSKELETAL Musculoskeletal: Present tenderness (lower back pain tender, positive straight leg raise both side.) NEUROLOGICAL Neurological: Present alert, Present oriented x 3, Present no gross motor or sensory deficits PSYCHOLOGICAL Psychological: Present mood/affect normal, Present judgement normal Results Laboratory Lab results reviewed: Yes Laboratory comments UA clean, UPT negative Imaging Imaging results reviewed: Yes Assessment & Plan Medical Decision Making MDM UA has no blood, doubt kidney stone. Reassessment Reassessment time: 20:07 Reassessment stable Assessment & Plan Final Impression: (1) Sciatic nerve palsy, right (2) Sciatic nerve palsy, left Depart Disposition: HOME, SELF-CARE Last Vital Signs Date Time Temp Pulse Resp B/P (MAP) Pulse Ox O2 Delivery O2 Flow Rate FiO2 04/03/20 19:06 98.5 75 142/77 99 Home Meds Active Scripts Tizanidine Hcl (ZANAFLEX) 4 Mg Tablet, 1 TAB PO Q8H PRN for back pain, #30 Prov:FARIHA MORGAN MD 04/03/20 Acetaminophen (ACETAMINOPHEN) 500 Mg Tablet, 1 TAB PO Q6H for pain or fever, #60 THERAPEUTICALLY SUBSTITUTED WITH ACETAMINOPHEN 325MG Prov:FARIHA MORGAN MD 04/03/20 Ibuprofen (IBUPROFEN IB) 200 Mg Tablet, 3 TAB PO Q6H PRN for pain, #90 Prov:FARIHA MORGAN MD 04/03/20 Discontinued Scripts Ondansetron Hcl* (ZOFRAN*) 4 Mg Tablet, 4 MG SL Q6H PRN for NAUSEA, #14 MG 0 Re fills Prov:FARIHA MORGAN MD 04/03/20 Acetaminophen/Codeine* (TYLENOL # 3*) 1 Ea Tab, 1 TAB PO Q4HR PRN for pain or cough, #30 Prov:FARIHA MORGAN MD 04/03/20 Ondansetron (ONDANSETRON ODT) 8 Mg Tab.rapdis, 4 MG PO Q6H for nausea and vomiting, #20 TAB 0 Refills Prov:MIKHAIL MCMAHON MD 01/14/20 Amoxicillin/Potassium Clav (AUGMENTIN 500-125 TABLET) 1 Each Tablet, 500 MG PO TID, #21 TAB Prov:KHALIDA LAWTON MD 08/24/19 Naproxen (NAPROSYN) 500 Mg Tablet, 1 TAB PO BID PRN for pain for 7 Days, #14 Prov:DEVIN FERRELL MD 01/19/19 Sulfamethoxazole/Trimethoprim (BACTRIM DS TABLET) 1 Each Tablet, 1 EACH PO BID for 10 Days, #20 Prov:DEVIN FERRELL MD 01/19/19 Physician Attestation Provider Attestation pt walks out of ER , steady gaits FARIHA MORGAN MD Apr 03, 2020 19:16
[2020-04-03] MEDS ORDERED: ZANAFLEX4 MG PO (20:07)
[2020-04-03] MEDS ORDERED: ACETAMINOPHEN500 MG PO (20:07)
--- OUTSIDE RECORDS SUMMARY | 2020-04-03 20:11 | XMS REPORT | Continuity of Care Document ---
Author Author [facility] t Organization [facility] Address [address] [place] [address] Phone Unavailable Care Team Providers Care Vacuum Pan Tender Name Role Phone NO, PCP PCP Unavailable 1, Anna Rn [facility]Rm[facility]p Attphys Unavailable Doctor Unassigned, Name No Attphys Unavailable Jason Whitman CNM Attphys Payers Payer Name Policy Type Policy Number Effective Date Expiration Date Alejandra CARRILLO [facility] Arnaldo Cooper Plus [id number] 2018 00:00:00 [facility] Ppo [id number] I [facility] Problems Condition Name Condition Details Condition Category Status Onset Date Resolution Date Last Treatment Date Treating Clinician Comments Source Viral gastroenteritis Problem Active [facility] Vomiting Problem Active [facility] Diarrhea Problem Active [facility] Hypokalemia Problem Active [facility] Tinea pedis Problem Active [facility] Allergies, Adverse Reactions, Alerts Allergy Name Allergy Type Status Severity Reaction(s) Onset Date Inacti ve Date Treating Clinician Comments Source Tetanus Vaccines and Toxoid DA Active [place] 2018-05-17 00:00: 00 [facility] Tetanus Vaccines and Toxoid Allergy to substance Active 2017-07-31 00:00:00 [facility] No Known Contrast Allergies DA Active U 2007-04-21 00:00: 00 [facility] No Known Drug Allergies DA Active U 2007-04-21 00:00:00 [facility] No Known Food Allergies DA Active U 2007-04-21 00:00:00 [facility] No Known Other Allergies DA Active U 2007-04-21 00:00:00 [facility] Social History Social Habit Start Date Stop Date Quantity Comments Source Sex Assigned At 1995 00:00:00 1995 00:00:00 Female [facility] Medications Ordered Medication Name Filled Medication Name Start Date Stop Da te Current Medication? Ordering Clinician Indication Dosage Frequency Signature (SIG) Comments Components Source Ondansetron (Ondansetron Odt) 8 Mg TAB.RAPDIS Ondanset lesvia (Ondansetron Odt) 8 Mg TAB.RAPDIS 2020-01-14 00:24:00 Yes 4 E very 6 Hours for Nausea And Vomiting [facility] Amoxicillin/Potassium Clav (Augmentin 500-125 Tablet) 1 Each TABLET Amoxicillin/Potassium Clav (Augmentin 500-125 Tablet) 1 Each TABLET 2019-08-24 11:37:00 Yes 500 Three Times A Day [facility] Naproxen (Naprosyn) 500 Mg TABLET Naproxen (Naprosyn) 500 Mg TABLET 2019-01-19 16:59:00 Yes 1 Twice A Day as needed for [place] n [facility] Sulfamethoxazole/Trimethoprim (Bactrim Ds Tablet) 1 Ea ch TABLET Sulfamethoxazole/Trimethoprim (Bactrim Ds Tablet) 1 Each TABLET 2019-01-19 16:59:00 Yes 1 Twice A Day [facility] Vital Signs Vital Name Observation Time Observation Value Comments Source Weight 2020-01-13 22:45:00 265 [lb_av] [facility] BMI (Body Mass Index) 2020-01-13 22:45:00 46.9 kg/m2 [facility] Procedures This patient has no known procedures. Plan of Care Planned Activity Planned Date Details Comments Source Instructions Tinea Pedis [facility] Instructions Diarrhea - Adult [facility] Instructions Viral Syndrome - Adult [facility] Instructions Vomiting - Adult [facility] Encounters Start Date/Time End Date/Time Encounter Type Admission Type Attendi [facility] Care Department Encounter ID Source 2020-01-13 22:30:00 2020-01-14 00:45:00 Departed Emergency Room [facility] [id number] [facility] 2019-08-24 11:13:00 2019-08-24 12:00:00 Departed Emergency Room [facility] [id number] [facility] 2019-06-16 15:12:39 2019-06-16 16:00:46 Nurse Visit 1Santhosh Rn [facility] STOCK CHECKER [facility] [id number] 2019-06-16 00:00:00 2019-06-16 00:00:00 Orders Only D octor Unassigned, [place] [facility] [id number] 2019-01-22 14:17:00 2019-01-22 15:03:00 Departed Emergency Room [facility] [id number] [facility] 2019-01-19 16:33:00 2019-01-19 17:29:00 Departed Emergency Room [facility] [id number] [facility] 2019-01-15 00:00:00 2019-01-15 00:00:00 Telephone Katelyn Whitman [facility] STOCK CHECKER [facility] [id number] 2019-01-08 11:10:14 2019-01-08 12:53:11 Office Visit Katelyn Whitman Jason [facility] STOCK CHECKER [facility] [id number] 2018-05-10 13:49:00 2018-05-10 17:25:00 Departed Emergency Room [facility] [id number] [facility] 2017-07-31 00:01:00 2017-07-31 00:37:00 Departed Emergency Room [facility] [id number] [facility] Results Test Description Test Time Test Comments Results Result Comments Source Human Chorionic Gonadotropin, Quant 2018-05-10 17:15:00 Test Item Human Chorionic Gonadotropin, Quant (test code = 14023-8) 08364.36 0-10 H [facility] Chorionic Gonadotropin, Quant 2018-05-10 17:15:00* Test Item Value Reference Range Interpretation Comments Human Chorionic Gonadotropin, Quant (test code = 59883-8) 80063.36 0-10 H [facility] Chorionic Gonadotropin, Quant 2018-05-10 17:15:00* Test Item Value Reference Range Interpretation Comments Human Chorionic Gonadotropin, Quant (test code = 06055-2) 62555.36 0-10 H [facility]
--- NOTE | 2020-04-03 21:16 | Diagnostic Imaging Report ---
X-ray lumbar spine 3 views HISTORY: Pain. COMPARISON: None available. DISCUSSION: Some of the osseous structures are partially obscured by stool and bowel gas. There are five non-rib bearing lumbar vertebral bodies. The alignment of the spine is within normal limits. No displaced fracture or compression deformity is identified. Disc Spaces: The disc spaces are well maintained. Facets: The facet joints are unremarkable. IMPRESSION: No acute radiographic abnormality. Signed by: Gary Cheema DO on 04/03/2020 9:13 PM
== END 2020-04-03 21:57 | disposition home or self-care (01) ==
LOC: FSED 18:50
DX: M54.42 Lumbago with sciatica, left side (principal); M54.41 Lumbago with sciatica, right side; G58.8 Other specified mononeuropathies
CPT/HCPCS: 72100; 81003; 81025; 99283

== ENCOUNTER 2020-08-17 22:13 | Emergency (ER) | payer SELFPAY ==
[~2020-08-17] VITALS: Ht 160 cm; Wt 132.4 kg
[~2020-08-17 22:13] MED LIST changes: +ACETAMINOPHEN500 MG PO; +IBUPROFEN IB200 MG PO; +TYLENOL # 31 EA PO; +ZANAFLEX4 MG PO; +ZOFRAN4 MG SL
[2020-08-17] MEDS ORDERED: KEFLEX125 MG/5 M PO (23:12)
[2020-08-17 23:18] VITALS: BP 144/85
[2020-08-17] MEDS ORDERED: TETANUS/DIPHTHERIA TOX ADULT 0.5 ML SYR ONE (23:18)
[2020-08-18] MEDS ORDERED: TETANUS/DIPHTHERIA TOX ADULT 0.5 ML SYR IM ONE (01:30)
== END 2020-08-17 23:18 | disposition home or self-care (01) ==
LOC: FSED 23:11
DX: S61.011A Laceration without foreign body of right thumb without damage to nail, initial encounter (principal); W45.8XXA Other foreign body or object entering through skin, initial encounter; Y92.008 Other place in unspecified non-institutional (private) residence as the place of occurrence of the external cause
CPT/HCPCS: 90471; 90714; 96372; 99282

== ENCOUNTER 2021-07-27 22:54 | Emergency (ER) | payer SELFPAY ==
[~2021-07-27] VITALS: Ht 160 cm; Wt 132.4 kg
[~2021-07-27 22:54] MED LIST changes: +KEFLEX125 MG/5 M PO
[2021-07-27] MEDS ORDERED: CLINDAMYCIN HC300 MG PO (23:42)
[2021-07-27] MEDS ORDERED: MUPIROCIN22 GM TOP (23:42)
== END 2021-07-27 23:55 | disposition home or self-care (01) ==
LOC: FSED 23:25
DX: T21.21XA Burn of second degree of chest wall, initial encounter (principal); X13.1XXA Other contact with steam and other hot vapors, initial encounter; E28.2 Polycystic ovarian syndrome
CPT/HCPCS: 99282

== ENCOUNTER 2021-09-09 20:39 | Emergency (ER) | payer MEDICARE, OTHER ==
[~2021-09-09] VITALS: Ht 160 cm; Wt 127.0 kg
[~2021-09-09 20:39] MED LIST changes: +CLINDAMYCIN HC300 MG PO; +MUPIROCIN22 GM TOP
[2021-09-09] MEDS ORDERED: TRAMADOL HCL 50 MG TAB PO STA (20:53)
[2021-09-09] MEDS ORDERED: HYDROCODONE/APAP 10MG-325MG TAB PO ONE (21:00)
[2021-09-09] MEDS ORDERED: ULTRAM 50MG50 MG PO (22:03)
[2021-09-09 22:40] VITALS: BP 138/89
== END 2021-09-09 22:10 | disposition home or self-care (01) ==
LOC: ER 20:42
DX: S93.492A Sprain of other ligament of left ankle, initial encounter (principal); X50.1XXA Overexertion from prolonged static or awkward postures, initial encounter; Y93.01 Activity, walking, marching and hiking; Y92.89 Other specified places as the place of occurrence of the external cause; E28.2 Polycystic ovarian syndrome
CPT/HCPCS: 99283